=== PATIENT | female | born 1960 | race African-American/Black ===

== ENCOUNTER 2018-01-14 09:51 | Inpatient (IN) | payer BC, OTHER ==
[~2018-01-14] VITALS: Ht 172.7 cm; Wt 40.4 kg
[2018-01-14] MEDS ORDERED: ALBUMIN HUMAN 25GM/100ML (25%) IV ONE (10:15)
[2018-01-14 10:26] LABS: BASOPHILS % 0.6 % (0.0-2.0); HEMATOCRIT. 30.6 % (36.0-48.0); HEMOGLOBIN. 10.2 g/dL (12.0-16.0); LYMPHOCYTES % 11.3 % (20.0-50.0); MEAN CORPUSCULAR VOLUME 101.9 fL (81.0-99.0); MEAN PLATELET VOLUME 9.2 fl (7.4-10.4); MONOCYTES % 10.9 % (2.0-8.0); NEUTROPHILS % 75.2 % (40.0-76.0); PLATELET 88 x1000/uL (130-400); RED BLOOD CELL COUNT 3.01 mill/uL (4.2-5.4); RED CELL DISTRIBUTION WIDTH 18.2 % (11.6-14.6)
[2018-01-14 10:31] LABS: CHLORIDE 96 mEq/L (98-107)
[2018-01-14 10:35] LABS: PARTIAL THROMBOPLASTIN TIME 41.1 sec (23.4-31.0); PROTHROMBIN TIME 19.5 sec (9.1-11.1)
[2018-01-14 10:36] LABS: ETHANOL BLOOD < 10 mg/dL
[2018-01-14 10:42] LABS: AMMONIA 92 uMol/L (<32)
[2018-01-14 15:44] VITALS: BP 94/53
[2018-01-14] MEDS ORDERED: IPRATROPIUM/ALBUTEROL 0.5-3(2.5)MG/3ML NEB INH PRN (15:45)
[2018-01-14] MEDS ORDERED: ONDANSETRON HCL 4MG/2ML INJ IV PRN (15:45)
[2018-01-14] MEDS ORDERED: DIPHENHYDRAMINE 50MG/ML VIAL IV PRN (15:45)
[2018-01-14] MEDS ORDERED: MAGNESIUM/ALUMINUM HYDROXIDE/SIMETHICONE 30ML UDC PO PRN (15:45)
[2018-01-14] MEDS ORDERED: ACETAMINOPHEN 325MG TABLET PO PRN (15:45)
[2018-01-14] MEDS ORDERED: CLONIDINE 0.1MG TABLET PO PRN (15:45)
[2018-01-14] MEDS ORDERED: NA PHOS,M-B/NA PHOS,DI-BA ENEMA 118ML PR PRN (15:45)
[2018-01-14] MEDS ORDERED: ACETAMINOPHEN 650MG/20.3ML UDC GT PRN (15:45)
[2018-01-14] MEDS ORDERED: ACETAMINOPHEN 650MG SUPP PR PRN (15:45)
[2018-01-14 16:00] VITALS: BP 94/53
[2018-01-14] MEDS ORDERED: ALBUMIN HUMAN 25GM/100ML (25%) IV NR (16:00)
[2018-01-14 19:15] LABS: TOTAL IRON BINDING CAPACITY 119 ug/dL (250-450)
[2018-01-14 19:49] LABS: HEPATITIS B SURFACE ANTIGEN NEGATIVE
[2018-01-14 20:00] VITALS: BP 110/58
[2018-01-14 20:17] LABS: HEPATITIS B CORE AB IGM NEGATIVE
[2018-01-14 20:19] LABS: HEPATITIS A AB IGM NEGATIVE (NEGATIVE)
[2018-01-14] MEDS: LACTULOSE 20G/30ML UDC PO SCH ×2 (21:15→21:28)
[2018-01-14] MEDS: SODIUM CHLORIDE 0.9% INJ 3ML FLUSH IVF SCH (21:16)
[2018-01-15] VITALS (10 sets, daily range): BP systolic 75–108; BP diastolic 44–68
[2018-01-15] MEDS: HYDROCODONE/ACETAMINOPHEN 5/325MG TABLET PO PRN (00:46)
[2018-01-15] MEDS: LACTULOSE 20G/30ML UDC PO SCH ×3 (06:00→21:57)
[2018-01-15 06:21] LABS: BASOPHILS % 0.5 % (0.0-2.0); EOSINOPHILS % 2.6 % (0.0-5.0); HEMATOCRIT. 26.7 % (36.0-48.0); HEMOGLOBIN. 9.2 g/dL (12.0-16.0); LYMPHOCYTES % 20.7 % (20.0-50.0); MEAN CORPUSCULAR HEMOGLOBIN 34.7 pg (28.0-32.0); MEAN CORPUSCULAR VOLUME 100.6 fL (81.0-99.0); MONOCYTES % 12.1 % (2.0-8.0); NEUTROPHILS % 64.1 % (40.0-76.0); RED BLOOD CELL COUNT 2.66 mill/uL (4.2-5.4); RED CELL DISTRIBUTION WIDTH 17.5 % (11.6-14.6)
[2018-01-15 06:40] LABS: CHLORIDE 95 mEq/L (98-107)
[2018-01-15 06:50] LABS: LDL CHOLESTEROL 34 mg/dL (5-100)
[2018-01-15 06:51] LABS: HDL CHOLESTEROL 12 mg/dL (40-59)
[2018-01-15] MEDS: SODIUM CHLORIDE 0.9% INJ 3ML FLUSH IVF SCH ×3 (07:02→21:57)
[2018-01-15] MEDS ORDERED: ALBUMIN HUMAN 25GM/100ML (25%) IV SCH ×2 (08:00→10:00)
[2018-01-15] MEDS: FUROSEMIDE 40MG/4ML VIAL IV SCH (08:26)
[2018-01-15] MEDS ORDERED: PHYTONADIONE 10 MG/10 ML ORALSYR PO NR (11:00)
[2018-01-15 12:56] LABS: INR 2.2
[2018-01-15] MEDS: MIDODRINE HCL 5MG TABLET PO SCH ×2 (13:05→17:18)
[2018-01-15 13:26] LABS: PLATELET ESTIMATE DECREASED
[2018-01-15 13:27] LABS: MEAN PLATELET VOLUME 9.2 fl (7.4-10.4); PLATELET 52 x1000/uL (130-400)
[2018-01-15] MEDS ORDERED: LEVOFLOXACIN 500MG PREMIX 100 ML IV SCH (17:00)
[2018-01-15] MEDS: METRONIDAZOLE 500 MG PREMIX 100 ML IV SCH (17:18)
[2018-01-16] VITALS (14 sets, daily range): BP systolic 80–104; BP diastolic 51–65
[2018-01-16] MEDS: METRONIDAZOLE 500 MG PREMIX 100 ML IV SCH ×3 (02:53→17:24)
[2018-01-16] MEDS: LACTULOSE 20G/30ML UDC PO SCH ×3 (05:25→21:58)
[2018-01-16] MEDS: SODIUM CHLORIDE 0.9% INJ 3ML FLUSH IVF SCH ×3 (05:30→21:59)
[2018-01-16 06:08] LABS: BASOPHILS % 0.5 % (0.0-2.0); EOSINOPHILS % 2.3 % (0.0-5.0); HEMATOCRIT. 23.7 % (36.0-48.0); HEMOGLOBIN. 8.2 g/dL (12.0-16.0); INR 1.8; LYMPHOCYTES % 21.8 % (20.0-50.0); MEAN CORPUSCULAR HEMOGLOBIN 35.1 pg (28.0-32.0); MEAN CORPUSCULAR VOLUME 101.3 fL (81.0-99.0); MONOCYTES % 14.3 % (2.0-8.0); NEUTROPHILS % 61.1 % (40.0-76.0); PARTIAL THROMBOPLASTIN TIME 40.9 sec (23.4-31.0); PROTHROMBIN TIME 18.1 sec (9.1-11.1); RED BLOOD CELL COUNT 2.34 mill/uL (4.2-5.4); RED CELL DISTRIBUTION WIDTH 17.4 % (11.6-14.6)
[2018-01-16 06:37] LABS: CHLORIDE 97 mEq/L (98-107)
[2018-01-16 07:03] LABS: AMMONIA 87 uMol/L (<32)
[2018-01-16 07:05] LABS: PHOSPHORUS 3.3 mg/dL (2.5-4.9)
[2018-01-16 07:39] LABS: FOLIC ACID (FOLATE) SERUM > 20.00 ng/mL (>5.38); VITAMIN B12 SERUM > 2000.0 pg/mL (211-911)
[2018-01-16 08:45] LABS: MEAN PLATELET VOLUME 8.7 fl (7.4-10.4); PLATELET 39 x1000/uL (130-400)
[2018-01-16] MEDS: MIDODRINE HCL 5MG TABLET PO SCH ×3 (08:56→17:25)
[2018-01-16] MEDS: FUROSEMIDE 40MG/4ML VIAL IV SCH (08:56)
[2018-01-16] MEDS: HYDROCODONE/ACETAMINOPHEN 5/325MG TABLET PO PRN ×3 (08:57→23:15)
[2018-01-16] MEDS ORDERED: KETAMINE HCL 50 MG/ML 10ML ONE (11:15)
[2018-01-16] MEDS ORDERED: MIDAZOLAM HCL 2 MG/2 ML VIAL ONE (11:15)
[2018-01-16] MEDS ORDERED: PROPOFOL 200MG/20ML VIAL IV ONE (11:16)
[2018-01-16] MEDS ORDERED: SIMETHICONE 40 MG/0.6 ML 30ML ONE (11:30)
[2018-01-16] MEDS ORDERED: PHENYLEPHRINE HCL 10 MG/ML 1ML (IV VIAL) IV ONE (11:30)
[2018-01-16] MEDS ORDERED: FENTANYL CITRATE/PF 50MCG/ML 2ML VIAL IV PRN (12:00)
[2018-01-16] MEDS ORDERED: SODIUM CHLORIDE 0.9% 1,000 ML IV SCH ×2 (12:00→13:35)
[2018-01-16] MEDS ORDERED: HYDROMORPHONE HCL/PF 2MG/ML CPJ IV PRN (12:00)
[2018-01-16] MEDS ORDERED: ONDANSETRON HCL 4MG/2ML INJ IV PRN (12:00)
[2018-01-16] MEDS ORDERED: ATROPINE SULFATE 0.4MG/ML VIAL IV PRN (12:00)
[2018-01-16] MEDS ORDERED: MEPERIDINE HCL/PF 25MG/ML CPJ IV PRN (12:00)
[2018-01-16] MEDS: LEVOTHYROXINE SODIUM 50MCG TABLET PO SCH (14:00)
[2018-01-16] MEDS ORDERED: PHYTONADIONE 10MG/ML AMP SUBCUT SCH ×2 (14:15→22:00)
[2018-01-16 15:16] LABS: BASOPHILS % 0.5 % (0.0-2.0); EOSINOPHILS % 1.7 % (0.0-5.0); HEMATOCRIT. 27.6 % (36.0-48.0); HEMOGLOBIN. 9.3 g/dL (12.0-16.0); LYMPHOCYTES % 17.3 % (20.0-50.0); MEAN CORPUSCULAR HEMOGLOBIN 34.3 pg (28.0-32.0); MEAN CORPUSCULAR VOLUME 101.7 fL (81.0-99.0); MEAN PLATELET VOLUME 8.1 fl (7.4-10.4); MONOCYTES % 11.7 % (2.0-8.0); NEUTROPHILS % 68.8 % (40.0-76.0); RED BLOOD CELL COUNT 2.72 mill/uL (4.2-5.4); RED CELL DISTRIBUTION WIDTH 17.3 % (11.6-14.6)
[2018-01-16 15:34] LABS: PLATELET 44 x1000/uL (130-400)
[2018-01-16] MEDS ORDERED: LEVOFLOXACIN 250MG PREMIX 50 ML IV SCH (16:00)
[2018-01-17] VITALS (9 sets, daily range): BP systolic 96–112; BP diastolic 52–75
[2018-01-17] MEDS: METRONIDAZOLE 500 MG PREMIX 100 ML IV SCH ×2 (00:30→08:33)
[2018-01-17] MEDS: LACTULOSE 20G/30ML UDC PO SCH ×2 (06:00→14:00)
[2018-01-17] MEDS: SODIUM CHLORIDE 0.9% INJ 3ML FLUSH IVF SCH ×2 (06:05→15:09)
[2018-01-17] MEDS: LEVOTHYROXINE SODIUM 50MCG TABLET PO SCH (06:05)
[2018-01-17] MEDS: MIDODRINE HCL 5MG TABLET PO SCH ×2 (08:31→13:00)
[2018-01-17] MEDS: FUROSEMIDE 40MG/4ML VIAL IV SCH (08:31)
[2018-01-17] MEDS ORDERED: OMEPRAZOLE 20MG CAPSULE EXTENDED RELEASE PO SCH (08:34)
[2018-01-17] MEDS: SUCRALFATE 1 G/10 ML UDC PO SCH ×2 (08:40→12:10)
[2018-01-17 09:18] LABS: BASOPHILS % 0.7 % (0.0-2.0); EOSINOPHILS % 2.7 % (0.0-5.0); HEMATOCRIT. 26.8 % (36.0-48.0); LYMPHOCYTES % 19.5 % (20.0-50.0); MEAN CORPUSCULAR HEMOGLOBIN 34.3 pg (28.0-32.0); MEAN CORPUSCULAR VOLUME 102.6 fL (81.0-99.0); MEAN PLATELET VOLUME 8.6 fl (7.4-10.4); MONOCYTES % 13.9 % (2.0-8.0); NEUTROPHILS % 63.2 % (40.0-76.0); PLATELET 69 x1000/uL (130-400); RED BLOOD CELL COUNT 2.61 mill/uL (4.2-5.4); RED CELL DISTRIBUTION WIDTH 17.4 % (11.6-14.6)
[2018-01-17 09:29] LABS: INR 1.8; PARTIAL THROMBOPLASTIN TIME 33.6 sec (23.4-31.0); PROTHROMBIN TIME 18.4 sec (9.1-11.1)
[2018-01-17 09:55] LABS: AMMONIA 80 uMol/L (<32)
[2018-01-17 10:18] LABS: CHLORIDE 99 mEq/L (98-107); PHOSPHORUS 3.5 mg/dL (2.5-4.9)
[2018-01-17] MEDS ORDERED: LACT10SO7 PO (12:42)
[2018-01-17] MEDS ORDERED: MIDO5TAB PO (12:42)
[2018-01-17] MEDS ORDERED: OMEP20CA10 PO (12:42)
[2018-01-17] MEDS ORDERED: LIDOCAINE HCL 1% 10 MG/ML 10ML VIAL ONE (12:46)
[2018-01-17] MEDS ORDERED: SODIUM BICARBONATE 4% (2.4MEQ) 5ML VIAL IV ONE (12:47)
== END 2018-01-17 19:20 | DRG 280 ==
LOC: ER 09:51 → 8WST 10:30 → EDBEDREQ 10:32 → ENRESERV 13:59 → 8WST 15:42
PROVIDERS: ADMIT Family Medicine; ATTEND Family Medicine
PROC: 30233L1 Transfusion of Nonautologous Fresh Plasma into Peripheral Vein, Percutaneous Approach (ICD-10-PCS; 2018-01-15)
PROC: 30233K1 Transfusion of Nonautologous Frozen Plasma into Peripheral Vein, Percutaneous Approach (ICD-10-PCS; 2018-01-15)
PROC: 0DB78ZX Excision of Stomach, Pylorus, Via Natural or Artificial Opening Endoscopic, Diagnostic (ICD-10-PCS; 2018-01-16)
PROC: 30233R1 Transfusion of Nonautologous Platelets into Peripheral Vein, Percutaneous Approach (ICD-10-PCS; 2018-01-16)
PROC: 06L38CZ Occlusion of Esophageal Vein with Extraluminal Device, Via Natural or Artificial Opening Endoscopic (ICD-10-PCS; principal; 2018-01-16 11:00)
PROC: 0W9G3ZZ Drainage of Peritoneal Cavity, Percutaneous Approach (ICD-10-PCS; 2018-01-17)
DX: K70.31 Alcoholic cirrhosis of liver with ascites (principal); N17.0 Acute kidney failure with tubular necrosis; E43 Unspecified severe protein-calorie malnutrition; D61.818 Other pancytopenia; L89.159 Pressure ulcer of sacral region, unspecified stage; K72.90 Hepatic failure, unspecified without coma; I95.9 Hypotension, unspecified; D68.9 Coagulation defect, unspecified; Z79.899 Other long term (current) drug therapy; I13.0 Hypertensive heart and chronic kidney disease with heart failure and stage 1 through stage 4 chronic kidney disease, or unspecified chronic kidney disease; E87.1 Hypo-osmolality and hyponatremia; E87.5 Hyperkalemia; I50.9 Heart failure, unspecified; D53.9 Nutritional anemia, unspecified; D63.8 Anemia in other chronic diseases classified elsewhere; I85.10 Secondary esophageal varices without bleeding; F17.210 Nicotine dependence, cigarettes, uncomplicated; J44.9 Chronic obstructive pulmonary disease, unspecified; K21.9 Gastro-esophageal reflux disease without esophagitis; B19.20 Unspecified viral hepatitis C without hepatic coma; K31.89 Other diseases of stomach and duodenum; K29.00 Acute gastritis without bleeding; K44.9 Diaphragmatic hernia without obstruction or gangrene; K29.70 Gastritis, unspecified, without bleeding; R13.10 Dysphagia, unspecified; N18.9 Chronic kidney disease, unspecified; Z53.09 Procedure and treatment not carried out because of other contraindication; Z59.0 Homelessness; Z74.01 Bed confinement status; Z88.0 Allergy status to penicillin; Z88.1 Allergy status to other antibiotic agents; Z68.1 Body mass index [BMI] 19.9 or less, adult; Z71.6 Tobacco abuse counseling
CPT/HCPCS: 36415; 49083; 71045; 76700; 80053; 80061; 80076; 82040; 82105; 82140; 82533; 82607; 82746; 83540; 83550; 83615; 83690; 83735; 83880; 83930; 84100; 84443; 84484; 85025; 85384; 85610; 85730; 86705; 86709; 86803; 86850; 86900; 86927; 86945; 87070; 87205; 87340; 88108; 88305; 88312; 88313; 89050; 93005; 93306; 96374; 97116; 97162; 99285; G0482; J1940; J1956; J2250; J2370; J2704; J3430; J3490; J7040; J7050; P9017; P9034; P9047